=== PATIENT | female | born 1995 | race Caucasian/White ===

== ENCOUNTER 2025-04-11 20:32 | Emergency (ER) | payer OTHER ==
[2025-04-11 20:47] VITALS: BP 117/67; PULSE 93; RESP 18; TEMP 98.2; BMI 35.3
[2025-04-11 21:41] LABS: ABSOLUTE IMMATURE GRANULOCYTES 0.11 x10^3/uL (0.0-0.031); BASOPHILS # 0.09 x10^3/uL (0.01-0.08); EOSINOPHIL % 2.2 % (0.7-5.8); EOSINOPHILS # 0.35 x10^3/uL (0.04-0.36); HEMATOCRIT 37.4 % (34.1-44.9); HEMOGLOBIN 12.6 g/dL (11.2-15.7); MCHC 33.7 g/dl (32.2-35.5); MEAN CELL VOLUME 83.7 fl (79.4-94.8); MEAN PLT VOLUME 11.4 fl (9.4-12.3); MONOCYTE # 0.55 x10^3/uL (0.24-0.86); MONOCYTE % 3.4 % (4.7-12.5); PLATELET COUNT 218 x10^3/uL (182-369); RDW 13.2 % (12.1-16.5)
[2025-04-11] MEDS: SODIUM CHLORIDE 0.9% 500 ML INFUS.BAG IV ONE (21:44)
[2025-04-11 21:48] LABS: INR 1.03 (0.83-1.09); PROTHROMBIN TIME (PATIENT) 11.3 SEC (9.7-13.0)
[2025-04-11 21:51] LABS: ACTIVATED PTT 27.7 SECONDS (25.2-36.5)
[2025-04-11 22:18] LABS: POTASSIUM 3.6 mmol/L (3.5-5.1)
[2025-04-11 22:20] LABS: ALBUMIN 3.3 g/dl (3.4-5.0); BLOOD UREA NITROGEN 9.3 mg/dL (7-18); CALCIUM 9.5 mg/dL (8.5-10.1)
[2025-04-11 22:24] LABS: CREATININE 0.7 mg/dL (0.55-1.3)
[2025-04-11 22:25] LABS: BILIRUBIN,TOTAL 0.1 mg/dL (0.2-1); TOT PROT 6.6 g/dl (6.4-8.2)
== END 2025-04-11 23:05 | disposition home or self-care (01) ==
LOC: JER 20:32
DX: O99.342 Other mental disorders complicating pregnancy, second trimester (principal); F41.0 Panic disorder [episodic paroxysmal anxiety]; O99.891 Other specified diseases and conditions complicating pregnancy; R55 Syncope and collapse; R61 Generalized hyperhidrosis; R23.1 Pallor; R07.9 Chest pain, unspecified; R06.82 Tachypnea, not elsewhere classified; O21.9 Vomiting of pregnancy, unspecified; O26.892 Other specified pregnancy related conditions, second trimester; M54.9 Dorsalgia, unspecified; Z3A.19 19 weeks gestation of pregnancy
CPT/HCPCS: 36415; 80053; 84484; 85025; 85610; 85730; 86850; 86900; 86901; 93005; 93010; 99284-25